=== PATIENT | male | born 1960 | race Caucasian/White ===

== ENCOUNTER → 2023-01-09 | Outpatient (CLI) | payer OTHER ==
[~2023-01-09] MED LIST: AMOX500 PO; CODGUAEL PO; CRUTCH4 USE; Flonase 0.05% N16 GM; HYDACE10B; Hydrocodone-Ap1 EA20 PO; INDO25 PO; INDO50 PO; METF500; Metformin HCl1000 MG PO; OXYACE5T PO; Percocet 5-3251 EACH PO; Prinivil10 MG PO; SIMV10 PO; SULTRIDS; Simvastatin40 MG PO
[2023-01-09 09:43] LABS: U Amphetamine Screen Not Detected; U Barbituate Screen Not Detected; U Benzodiazapine Screen Not Detected; U Buprenorphine Screen Not Detected; U Cannabinoids Screen Not Detected; U Cocaine Screen Not Detected; U Methadone Screen Not Detected; U Methamphetamine Screen Not Detected; U Opiates Screen DETECTED; U Oxycodone Screen Not Detected; U Phencyclidine Screen Not Detected; U Propoxyphene Screen Not Detected
== END ==
LOC: LAB SHORT 07:00 → LAB 07:00
PROVIDERS: Physician Assistant
DX: M54.2 Cervicalgia (principal); G89.4 Chronic pain syndrome
CPT/HCPCS: G0480

== ENCOUNTER 2024-07-14 06:30 | Day surgery (SDC) | payer MEDICARE ==
[~2024-07-14] VITALS: Ht 180.3 cm; Wt 101.1 kg
[2024-07-14] MEDS ORDERED: VITAMIN C125 MG (07:04)
[2024-07-14] MEDS ORDERED: PYRI100 (07:05)
[2024-07-14] MEDS ORDERED: Vitamin D1000 UNI1 (07:05)
[2024-07-14] MEDS ORDERED: 1/2 NS 250ml250 ML (07:05)
[2024-07-14] MEDS ORDERED: Vitamin B-12100 MCG (07:05)
[2024-07-14] MEDS ORDERED: FISH OIL 1,0001 EA10 (07:06)
[2024-07-14] MEDS ORDERED: propofoL 50 ML IV ONE (07:32)
[2024-07-14] MEDS ORDERED: Lactated Ringer's 1,000 ML IV ONE ×2 (07:32→07:51)
[2024-07-14 09:05] VITALS: BP 111/78
== END 2024-07-14 09:02 | disposition home or self-care (01) ==
LOC: ORSCSDS 06:30
PROVIDERS: Surgery
PROC: 0DBM8ZX Excision of Descending Colon, Via Natural or Artificial Opening Endoscopic, Diagnostic (ICD-10-PCS; principal; 2024-07-14 08:00)
PROC: 0DBP8ZX Excision of Rectum, Via Natural or Artificial Opening Endoscopic, Diagnostic (ICD-10-PCS; principal; 2024-07-14 08:00)
DX: Z12.11 Encounter for screening for malignant neoplasm of colon (principal); Z86.0101 Personal history of adenomatous and serrated colon polyps; D12.4 Benign neoplasm of descending colon; K62.1 Rectal polyp; K57.30 Diverticulosis of large intestine without perforation or abscess without bleeding; F32.A Depression, unspecified; K21.9 Gastro-esophageal reflux disease without esophagitis; I10 Essential (primary) hypertension; E78.5 Hyperlipidemia, unspecified; E11.9 Type 2 diabetes mellitus without complications; Z79.84 Long term (current) use of oral hypoglycemic drugs; Z87.891 Personal history of nicotine dependence; Z79.899 Other long term (current) drug therapy
CPT/HCPCS: 82947; 88305; J2704; J7120